=== PATIENT | female | born 1990 | race Caucasian/White ===

== ENCOUNTER → 2022-02-05 02:56 | Outpatient (CLI) | payer OTHER, SELFPAY ==
[2022-02-05 12:18] LABS: Influenza A QL RT-PCR Negative (Negative); Influenza B QL RT-PCR Negative (Negative); SARS-CoV-2 RNA PCR Negative
== END ==
PROVIDERS: PCP Family Medicine; Visit Provider Family Medicine
DX: J06.9 Acute upper respiratory infection, unspecified (principal); Z20.822 Contact with and (suspected) exposure to COVID-19
CPT/HCPCS: 87502; C9803; U0003; U0005

== ENCOUNTER 2022-06-30 12:13 | Outpatient (RCR) | payer OTHER, SELFPAY ==
--- NOTE | ~2022-06-30 | US_ITS ---
EXAMINATION: US OB follow up w BPP DATE: 06/30/2022 13:34 INDICATION: Postdates. Assess amniotic fluid index and estimated weight . TECHNIQUE: Real-time ultrasound of the pelvis was performed. The interpreting radiologist was not pre sent for the study. COMPARISON: None. FINDINGS: There is a single living fetus in vertex presentation. The placenta is posterior. heart rate i s 136 beats per minute (bpm). The amniotic fluid index is 7.1 cm, which is normal (5th%-95%: 8.7-13.7 cm at 40 weeks estimated gestational age) . The following biometric data were obtained: BPD: 9.7 cm -> 39 weeks 6 days Head circumference: 34.1 cm -> 39 weeks 2 days Abdominal circumference: 41.6 cm -> out of range Femur length: 7.9 cm -> 40 weeks 1 days Femur length to abdominal circumference ratio of 18.9 cm below the normal range (20-24). Femur length to head circumference ratio of 23.0 cm normal range (20.7-22.8). Head circumference to abdominal circumference ratio: 0.82 (normal range 0.89-1.04). Estimated weight: 4947 g (+/-) 742 g, 10lbs 15oz (+/-) 1 lbs. 10 oz Biophysical profile performed by the technologist: breathing (30 sec sustained breathing in 30 minutes): 2 out of 2 movement (3 gross body movements in 30 minutes: 2 out of 2 tone (one episode of pdigxlt-pnljqrwnm-jfqoiqv limb movement): 2 out of 2 Amniotic fluid pocket (2 cm): 2 out of 2 Total score: 8 out of 8 IMPRESSION: 1. Single living fetus in vertex presentation. 2. Oligohydramnios with amniotic fluid index of 7.1 cm which is greater than 2 standard deviations b elow the mean. Correlate for leaking fluids. 3. Biophysical profile 8 out of 8. 4. Estimated weight is >97th percentile by Hadlock criteria when 06/29/2022 is used as the estima sheila date of delivery (NEO). Please correlate with clinical information or earlier ultrasounds for mos t accurate NEO. 5. Discordant biometric data with head circumference to abdominal circumference ratio, femur length t o abdominal circumference ratio and femur length to head circumference ratio all outside of the norm al range as detailed above. Reviewed, dictated and finalized at location A. IMPRESSION: 1. Single living fetus in vertex presentation. 2. Oligohydramnios with amniotic fluid index of 7.1 cm which is greater than 2 standard deviations below the mean. Correlate for leaking fluids. 3. Biophysical profile 8 out of 8. 4. Estimated weight is >97th percentile by Hadlock criteria when 06/29/2022 is used as the estimated date of delivery (NEO). Please correlate with clinica l information or earlier ultrasounds for most accurate NEO. 5. Discordant biometric data with head circumference to abdominal circumference ratio, femur length to abdominal circumference ratio and femur length to head circumference ratio all outside of the normal range as detailed above.
--- NOTE | 2022-06-30 13:57 | PC.NURSE ---
1350 Dr Espinoza informed of patient NST, BPP, STONEY, EFW results. Plan to follow up with Dr Espinoza on Tuesday at regularly scheduled appointment. Patient informed of results and will discuss plan of care with Dr Espinoza on Tuesday.
[2022-06-30 14:04] VITALS: BP 117/84; PULSE 90
== END 2022-06-30 14:00 | disposition home or self-care (01) ==
LOC: ANHOBOP 12:13
PROVIDERS: PCP Family Medicine; Visit Provider Obstetrics & Gynecology
DX: O48.0 Post-term pregnancy (principal); O28.3 Abnormal ultrasonic finding on antenatal screening of mother; O41.03X0 Oligohydramnios, third trimester, not applicable or unspecified; Z3A.40 40 weeks gestation of pregnancy
CPT/HCPCS: 59025; 76816; 76819

== ENCOUNTER 2022-07-02 17:16 | Inpatient (IN) | payer OTHER, SELFPAY ==
[2022-07-02] VITALS (50 sets, daily range): BP systolic 91–139; BP diastolic 57–96; PULSE 64–101; RESP 14–18; TEMP 36.4–36.5; O2SAT 93–100; BMI 47.3
[2022-07-02] MEDS: LACTATED RINGERS 1,000 ML 125 ML IV CONT (17:58)
--- NOTE | 2022-07-02 18:01 | WPDANESEPPF ---
Anes - Initial Pre Proc Eval Procedure: Operation Date: 07/02/22 18:30 Proposed Procedures p Section - Brijesh Espinoza MD Date/Time: 07/02/22 18:01 Surgeon: Brijesh Espinoza MD Pre Op Diagnosis: c/s Patient Data Age: 32 Gender: F Height: 1.75 m Weight: 145.5 kg Last Vital Signs Pulse 99 07/02/22 17:46 BP 120/95 H 07/02/22 17:46 Allergies Allergy/AdvReac Type Severity Reaction Status Date / Time Sulfa (Sulfonamide Allergy Unknown Rash Verified 06/02/22 14:36 Antibiotics) Home Medications Medication Instructions Recorded Confirmed Type escitalopram oxalate 10 mg tablet 10 mg PO DAILY #30 tabs 03/02/22 Rx (Lexapro) prenat.vits,john,[id number] 1 tablet PO DAILY 06/02/22 06/02/22 History Laboratory Tests 07/02/22 07/02/22 17:49 17:49 WBC Pending RBC Pending Hgb Pending Hct Pending MCV Pending MCH Pending MCHC Pending RDW Pending Plt Count Pending MPV Pending Immature Gran % (Auto) Pending Neut % (Auto) Pending Lymph % (Auto) Pending [place] % (Auto) Pending Eos % (Auto) Pending Baso % (Auto) Pending Lymph # (Auto) Pending [place] # (Auto) Pending Eos # (Auto) Pending Baso # (Auto) Pending Abs Immat Gran (auto) Pending Absolute Neuts (auto) Pending Absolute Nucleated RBC Pending Nucleated RBC % Pending RPR Pending Patient hx anesthesia problems: none Family hx anesthesia problems: none Results Review: All pre-operative results and documents have been reviewed as part of the pre-operative evaluation. [facility] Past Medical History Medical History Anxiety Family History Family History (Updated 06/02/22 @ 14:39 by Qing Oliveira RN) Father Family history of elevated blood lipids Sibling Family history of type 1 diabetes mellitus Sibling History of anesthesia reaction Grandparent Heart defect, congenital Social History Social History (Updated 08/27/21 @ 09:04 by Bonnie Garnett CMA) Smoking status: Former smoker Tobacco type: e-cigarettes/vaping Second hand tobacco smoke exposure: Yes Alcohol intake: current Alcohol use details: social Substance use: never Substance use type: does not use Additional occupation/education comments: 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 Gender identity (if verbalized by the patient): Female Spiritual care concerns: No Anes - Eval Final PreProcedure Day of Procedure 07/02/22 18:01 Patient weight: morbidly obese Heart: regular rate and rhythm Lungs: clear to auscultation and normal air movement Airway: Mallampati scale class II Neurological: alert and oriented Last oral intake: >/= 8 hours ASA classification: III Emergent: no Anesthetic plan: proceed Anesthesia type and monitoring: regional spinal and standard monitoring Results Review: All pre-operative results and documents have been reviewed as part of the pre-operative evaluation. Informed Consent: The patient's anesthetic plan and its attendant risks and benefits were discussed with the patient/family/POA. Questions were solicited and answers provided to the satisfaction of the patient/family/POA.
[2022-07-02 18:06] LABS: Basophils Percent Auto 0.2 % (0.2-1.2); Eosinophils Absolute Auto 0.1 K/mm3 (0-0.3); Eosinophils Percent Auto 0.8 % (0-4.4); Hematocrit 36.2 % (37.0-47.0); Hemoglobin 12.6 g/dL (12.0-15.0); Immature Granulocyte Absolute 0.07 K/mm3 (0.00-0.031); Immature Granulocyte Percent A 0.7 % (0-0.5); Lymphocytes Absolute Auto 1.97 K/mm3 (0.9-3.2); Lymphocytes Percent Auto 19.3 % (18.3-44.2); Mean Corpuscular HGB Conc 34.8 g/dl (32-36); Mean Corpuscular Hemoglobin 31.8 pg (26-34); Mean Corpuscular Volume 91.4 fl (80-100); Mean Platelet Volume 12.2 fl (7.4-10.4); Monocytes Absolute Auto 0.6 K/mm3 (0.1-0.6); Monocytes Percent Auto 5.5 % (2.6-8.5); Neutrophils Absolute Auto 7.5 K/mm3 (1.3-6.7); Neutrophils Percent Auto 73.5 % (45.5-73.1); Platelet Count Result 175 k/mm3 (150-375); Red Blood Count 3.96 M/mm3 (4.2-5.4); Red Cell Distribution Width 12.8 % (11.5-14.5); White Blood Count 10.2 K/mm3 (4.5-10.0)
--- NOTE | 2022-07-02 18:09 | LDADM ---
This patient, Sondra South, was admitted to Labor/Delivery/Recovery 119 on 07/02/22 at 17:16. Plans for labor, pain management and were discussed with patient. Patient/family oriented to hospital policies and general routines including ID bracelet, bed and alarms, visiting hours, pain management, procedures, bathroom and other care routines, personal items, smoking policy, room service/diet and guest tray routines, infant security routines, and visiting hours. Patient/Family are encouraged to report perceived risks to care and to ask questions if they do not understand what they are told or what they should do. See OBIX for further documentation.
[2022-07-02] MEDS: ceFAZolin 3 GM/D5W 100 ML 100 ML IVPB (18:39)
--- NOTE | 2022-07-02 18:43 | PM.IMHP ---
H&P: HPI History of Present Illness Date/Time: 07/02/22 18:43 Chief Complaint: intrauterine at term spontaneous rupture of membranes suspected macrasomia Narrative: 32 yo G1 at 40w2d who presents with SROM. Pt is unsure when she had rupture. She reports small quantities of fluid since yesterday. She reports good movement. Pt is complicated by glucose intolerance. She had a recent growth scan that estimated the weight to be >5000g. Pt discussed this with Dr. Espinoza and elected for primary . Review of Systems Cardiovascular: Cardiovascular: Denies chest pain, Denies leg edema, Denies palpitations, Denies dyspnea and Denies dyspnea on exertion Respiratory: Respiratory: Denies cough, Denies dyspnea and Denies dyspnea on exertion Gastrointestinal: Gastrointestinal: Denies abdominal pain, Denies constipation, Denies diarrhea, Denies nausea and Denies vomiting Genitourinary: Genitourinary: Denies hematuria, Denies urinary frequency, Denies dysuria, Denies pelvic pain, Denies urinary incontinence and Denies vaginal discharge Neurologic: Reports system reviewed and no additional complaints, except as documented Psychiatric: Psychiatric: Reports no additional psychiatric complaints Endocrine: Endocrine: Denies palpitations PMFSH Past Medical History Medical History Anxiety Family History Family History (Updated 06/02/22 @ 14:39 by Qing Oliveira RN) Father Family history of elevated blood lipids Sibling Family history of type 1 diabetes mellitus Sibling History of anesthesia reaction Grandparent Heart defect, congenital Social History Social History (Updated 08/27/21 @ 09:04 by Bonnie Garnett [facility]) Smoking status: Never smoker Tobacco type: e-cigarettes/vaping Second hand tobacco smoke exposure: Yes Alcohol intake: current Alcohol use details: social Substance use: never Substance use type: does not use Additional occupation/education comments: 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 Gender identity (if verbalized by the patient): Female Spiritual care concerns: No Meds Home Medications and Allergies Home Medications Medication Instructions Recorded Confirmed Type escitalopram oxalate 10 mg tablet 10 mg PO DAILY #30 tabs 03/02/22 07/02/22 Rx (Lexapro) prenat.vits,john,[id number] 1 tablet PO DAILY 06/02/22 06/02/22 History Allergies Allergy/AdvReac Type Severity Reaction Status Date / Time Sulfa (Sulfonamide Allergy Unknown Rash Verified 06/02/22 14:36 Antibiotics) Vital Signs Vital Signs - 24 hr 07/02/22 17:46 07/02/22 18:01 07/02/22 18:16 Temperature Pulse Rate 99 96 84 Blood Pressure 120/95 H 130/96 H 139/88 07/02/22 18:30 07/02/22 18:32 Temperature 36.5 C Pulse Rate 88 Blood Pressure 133/77 Exam Const: General: no acute distress Eyes: EOM: EOMs intact bilaterally Neck: Neck: supple Thyroid: thyroid normal Chest: Breast/axilla inspection: normal inspection of the breasts Breast/axilla palpation: normal palpation of the breasts, normal palpation of the axillae and no axillary lymphadenopathy Resp: Effort & Inspection: normal respiratory effort Auscultation: clear to auscultation bilaterally Cardio: Rate: regular rate Rhythm: regular rhythm GI: Inspection: non-distended and other (Gravid) GI Palp: Yes Soft to palpation, No Tenderness to palpation present (GI) and No Guarding due to palpation present (GI) Auscultation: normal bowel sounds : Speculum Exam - Vagina: No vaginal bleeding OB/external & speculum: external exam normal; No vaginal bleeding Skin: General skin exam: normal color and no rashes or lesions noted Neuro: Cognition (Neuro): normal cognition Speech: normal speech Extrem: General: normal to inspection Psych: Mental Status: mental status grossly normal Affect: normal affect H&P:
--- NOTE | 2022-07-02 19:49 | W.PM.PROC2 ---
Procedure Note - Detailed Date of Procedure 07/02/22 Pre-op Diagnosis intrauterine at term spontaneous rupture of membranes Post-op Diagnosis Same Procedure Performed low transverse section Surgeon Azael Funes MD Anesthesia Spinal and Epidural Indications suspected macrosomia Description of Procedure The patient was taken to the operating room. A combined spinal epidural anesthesic was administered and found to be adequate at a t-10 level. The patient was placed in a supine position with a slight left lateral tilt. A miles catheter was placed with return of clear urine. A Bovie grounding pad was placed. Surgical prep was performed and surgical drapes were placed. A surgical time out was performed. A Pfannenstiel skin incision was then made with the scalpel and carried through to the underlying layer of fascia. The fascia was then incised in the midline and the incision was extended laterally with the Huggins scissors. The superior aspect of the fascia was then grasped with the Keisha clamps, elevated, and the underlying rectus muscles dissected off bluntly and sharply. Attention was then turned to the inferior aspect of this incision which, in a similar fashion, was grasped, tented up with the Keisha clamps, and the rectus muscles dissected off both bluntly and sharply. The rectus muscles were then in the midline. The peritoneum was identified and entered bluntly. The peritoneal incision was then extended superiorly and inferiorly with good visualization of the bladder. The vesico-uterine serosa was identified and dissected to create a bladder flap. The bladder blade was reinserted. The uterus was inspected for rotation. A low-transverse uterine incision was made sharply with the scalpel and entry was made into the uterine cavity. An amniotomy was made and copious amounts of clear fluid were noted on return. The uterine incision was extended laterally bluntly. The bladder blade was removed and the fetus was delivered atraumatically. The nose and mouth were suctioned with a bulb syringe. The umbilical cord was clamped twice and cut. The infant was handed off to the waiting staff. A second segment of umbilical cord was clamped and cut for cord blood gasses. Cord blood was collected for determination of the blood type and for direct Dennis. The placenta was delivered spontaneously without difficulty. The placenta appeared grossly normal and complete. The uterus was exteriorized and cleared of all clots and debris. The uterine incision was repaired using 0-monocryl suture in a running fashion. A second layer of 0 Monocryl suture was used in an imbricating fashion to obtain excellent hemostasis and uterine strength. The uterine closure was inspected for hemostasis. The posterior aspect of the uterus and the broad ligaments were inspected and the posterior cul-de-sac cleared of fluid and blood clots. The uterine closure was again inspected and found to be hemostatic. The uterus was returned to the abdominal cavity. The pericolic gutters were inspected and were cleared of all blood clots and debris. The uterine closure was then re inspected to ensure hemostasis as were all subfascial tissues. The peritoneum was closed using 3-0 vicryl in a running fashion. The fascia was reapproximated with 0-vicryl in a running fashion. The subcutaneous tissue was irrigated and hemostasis achieved with electrocautery. It was reapproximated with 3-0 vicryl in a running fashion. The skin was closed with 4-0 vicryl in a subcuticular fashion. A sterile dressing was applied to the wound. The patient tolerated the procedure well. Sponge, lap and needle counts were correct times three. The patient was taken to recovery in stable condition and without anticipated complications. Estimated Blood Loss 425 Drains No Packing No Complications No immediate complications Condition Stable Disposition Floor
[2022-07-02] MEDS: OXYTOCIN 30 UNITS/NS 500 ML 30 UNITS/500 ML BAG 125 UNITS IV CONT (20:40)
--- NOTE | 2022-07-02 22:23 | PC.NURSE ---
Patient arrived to unit and placed into room 286 via stretcher accompanied by , infant and 2 RNs. Patient and family member oriented to the room and unit. Safety precautions reviewed and verbalized understanding. Call light within reach. No signs of distress. Will continue to monitor.
[2022-07-03] MEDS: DEXTROSE 5%/0.45% SOD CHL 1,000 ML 125 ML IV CONT (01:00)
[2022-07-03] MEDS: ACETAMINOPHEN 325 MG TABLET 650 MG PO (04:13)
--- NOTE | 2022-07-03 07:57 | P.PNOB_ITS ---
OB - PN: Subj Subjective Date/time seen: 07/03/22 07:57 Patient comments: no complaints, pain well controlled, tolerating diet and flatus present OB - PN: Obj Data Labs CBC & Chem 7: 07/02/22 17:49 Labs: Laboratory Results - last 24 hr 07/02/22 07/02/22 17:49 17:49 WBC 10.2 H RBC 3.96 L Hgb 12.6 Hct 36.2 L MCV 91.4 MCH 31.8 MCHC 34.8 RDW 12.8 Plt Count 175 MPV 12.2 H Immature Gran % (Auto) 0.7 H Neut % (Auto) 73.5 H Lymph % (Auto) 19.3 [place] % (Auto) 5.5 Eos % (Auto) 0.8 Baso % (Auto) 0.2 Lymph # (Auto) 1.97 [place] # (Auto) 0.6 Eos # (Auto) 0.1 Baso # (Auto) 0.0 Abs Immat Gran (auto) 0.07 H Absolute Neuts (auto) 7.5 H Absolute Nucleated RBC 0.0 Nucleated RBC % 0.0 Blood Type O Positive Antibody Screen Positive JOSE, Poly Interpret Negative OB - PN A/P Plan day: 1 Plan: routine care Comments: patient doing well H/H pending afebrile, VSS Dressing clean, small amount of dried blood. Will change dressing prior to d/c t omorrow miles removed, voiding spontaneously continue routine post op care Time Spent With Patient Time: Total time spent is greater than 50% in coordination of care (as documented) at patient's floor/unit and/or counseling patient: Time with patient: less than 15 minutes Review of Systems Constitutional: Constitutional: Reports no additional constitutional complaints Cardiovascular: Cardiovascular: Reports no additional cardiovascular c omplaints Respiratory: Respiratory: Reports no additional respiratory complaints Gastrointestinal: Gastrointestinal: Reports no additional gastrointestinal complaints Genitourinary: Genitourinary: Reports no additional female genitourinary complaints Exam Const: General: comfortable and no acute distress Resp: Effort & Inspection: normal respiratory effort Auscultation: clear to auscultation bilaterally Cardio: Rate: regular rate GI: GI Palp: Yes Soft to palpation, Yes Tenderness to palpation present (GI) (around incision ) and No Guarding due to palpation present (GI) Auscultation: normal bowel sounds Other: incision C/D/I, covered with Dermabond Psych: Appearance: grossly normal Mental Status: mental status grossly normal Affect: normal affect
--- NOTE | 2022-07-03 07:58 | PM.OBDSVD ---
DS: Admitting Diagnosis Discharge Date 07/04/22 Admitting Diagnosis Intrauterine at term spontaneous rupture of membranes suspected macrosomia OB - DS: Summary OB Procedures : None OB Procedures Intrapartum: OB Procedures: : None Peripartum Data Delivery Method: Section Procedures: Procedures Operation Date: 07/02/22 18:30 Actual Procedure Side Surgeon p Section Bilateral Azeal Funes MD complications: none Status at Discharge Functional status at discharge: independent ambulation Overall status at discharge: patient is progressing back to baseline Time Spent with Patient Time attestation: Total time spent providing and/or coordinating discharge services: Time spent: Less than 30 minutes Exam Const: General: comfortable and no acute distress Resp: Effort & Inspection: normal respiratory effort Auscultation: clear to auscultation bilaterally Cardio: Rate: regular rate GI: Inspection: non-distended GI Palp: Yes Soft to palpation, No Firmness to palpation present (GI), Yes Tenderness to palpation present (GI) (mild tenderness over incision ) and No Guarding due to palpation present (GI) Auscultation: normal bowel sounds Psych: Appearance: grossly normal Mental Status: mental status grossly normal DS: Data Data Completed and Pending Labs on day of discharge: Labs from last 24 hours 07/02/22 07/02/22 07/02/22 17:49 17:49 17:49 WBC 10.2 H RBC 3.96 L Hgb 12.6 Hct 36.2 L MCV 91.4 MCH 31.8 MCHC 34.8 RDW 12.8 Plt Count 175 MPV 12.2 H Immature Gran % (Auto) 0.7 H Neut % (Auto) 73.5 H Lymph % (Auto) 19.3 [place] % (Auto) 5.5 Eos % (Auto) 0.8 Baso % (Auto) 0.2 Lymph # (Auto) 1.97 [place] # (Auto) 0.6 Eos # (Auto) 0.1 Baso # (Auto) 0.0 Abs Immat Gran (auto) 0.07 H Absolute Neuts (auto) 7.5 H Absolute Nucleated RBC 0.0 Nucleated RBC % 0.0 RPR Pending Blood Type O Positive Antibody Screen Positive Antibody Identification Pending Antigen Identification Pending JOSE, IgG Interpret Pending JOSE, Poly Interpret Negative JOSE, Complement Interp Pending Discharge Plan Discharge Discharging Clinician: Azael Funes Patient Disposition: Home, Self-Care Activity: as tolerated and pelvic rest Diet: regular Wound Care Instructions: keep dressing dry Patient Instructions: Antibiotic Form, (DC) Stand Alone Forms: General Discharge Information Follow-up/Referrals: Brijesh Espinoza MD [Physician] - 4 Weeks Discharge Medications: New hydrocodone-acetaminophen 5-325 mg tablet 1 tablet PO Q6H PRN (Reason: pain) Qty: 30 0RF acetaminophen [Mapap (acetaminophen)] 325 mg Tablet 650 mg PO Q6H PRN (Reason: Mild Pain (1-3)) Qty: 30 0RF ibuprofen 600 mg Tablet 600 mg PO Q6H PRN (Reason: Cramping) Qty: 30 0RF Continued #2 Tablet 1 tablet PO DAILY escitalopram oxalate [Lexapro] 10 mg tablet 10 mg PO DAILY Qty: 30 4RF Date of admission: 07/02/22 17:16 Primary Care Provider: Megan Masters Admitting Provider: Brijesh Espinoza Attending physician on admission: Brijesh Espinoza Condition: Stable
[2022-07-03 09:00] VITALS: PULSE 77; RESP 18; O2SAT 99
--- NOTE | 2022-07-03 09:42 | WPDANLDPN2 ---
Anes-Prog Note L&D Date/Time: 07/03/22 09:42 Comfortable throughout: section Neuraxial method: spinal Epidural/Spinal procedure site: clean & non-tender Neuro status: Neuro function grossly intact. Cardiovascular status: normal Respiratory status: normal Airway patency: baseline Mental status: baseline Post-Op hydration status: normal Vital Signs: Last Vital Signs Temp 36.4 C 07/02/22 19:52 Pulse 68 07/02/22 22:01 Resp 16 07/02/22 21:52 BP 127/67 07/02/22 22:01 Pulse Ox 99 07/02/22 22:03 O2 Del Method Room Air 07/02/22 21:52 Pain score (VAS): 12/07 I/O: Intake & Output 07/02/22 07/03/22 07/03/22 23:59 07:59 15:59 Intake Total 100 375 Output Total 1200 200 Balance -1100 175 Post-procedural complaints: none Patient feedback: Patient satisfied with anesthetic care.
--- NOTE | 2022-07-03 09:43 | WPDANLDNPN2 ---
Anes-Prog Note L&D-Neuraxial Date/Time: 07/03/22 09:43 Neuraxial medications: intrathecal PF morphine Opiod-related complaints: none Patient feedback: Patient satisfied with post-operative pain management.
[2022-07-03] MEDS: IBUPROFEN 600 MG TABLET PO ×2 (09:58→16:16)
[2022-07-03] MEDS: HYDROcodone/acetaminophen (*CRX) 5-325 MG TABLET 1 TAB PO ×3 (09:59→23:05)
[2022-07-03] MEDS: MULTIVIT/MIN/PREN/FOL AC/IRON TABLET 1 TAB PO (09:59)
[2022-07-03] MEDS: SIMETHICONE 80 MG TAB.CHEW PO ×3 (09:59→20:01)
[2022-07-03] MEDS: DOCUSATE SODIUM 100 MG CAPSULE PO ×2 (09:59→16:16)
[2022-07-03] MEDS: POLYSACCHARIDE IRON COMPLEX 150 MG CAPSULE PO ×2 (10:00→16:16)
[2022-07-03 10:30] VITALS: BP 117/88; PULSE 94; RESP 18; TEMP 36.4; O2SAT 98
[2022-07-03 14:00] VITALS: PULSE 77; RESP 18; O2SAT 99
[2022-07-03 15:35] VITALS: BP 129/69; PULSE 77; RESP 18; TEMP 36.1; O2SAT 99
[2022-07-03 20:00] VITALS: BP 140/74; PULSE 90; RESP 18; TEMP 36.8; O2SAT 99
[2022-07-03 20:03] LABS: Basophils Percent Auto 0.2 % (0.2-1.2); Eosinophils Absolute Auto 0.1 K/mm3 (0-0.3); Eosinophils Percent Auto 0.7 % (0-4.4); Hematocrit 30.9 % (37.0-47.0); Hemoglobin 10.6 g/dL (12.0-15.0); Immature Granulocyte Absolute 0.06 K/mm3 (0.00-0.031); Immature Granulocyte Percent A 0.5 % (0-0.5); Lymphocytes Absolute Auto 2.05 K/mm3 (0.9-3.2); Lymphocytes Percent Auto 15.5 % (18.3-44.2); Mean Corpuscular HGB Conc 34.3 g/dl (32-36); Mean Corpuscular Hemoglobin 31.6 pg (26-34); Mean Corpuscular Volume 92.2 fl (80-100); Mean Platelet Volume 12.1 fl (7.4-10.4); Monocytes Absolute Auto 0.7 K/mm3 (0.1-0.6); Monocytes Percent Auto 5.1 % (2.6-8.5); Neutrophils Absolute Auto 10.4 K/mm3 (1.3-6.7); Platelet Count Result 139 k/mm3 (150-375); Red Blood Count 3.35 M/mm3 (4.2-5.4); Red Cell Distribution Width 13.1 % (11.5-14.5); White Blood Count 13.3 K/mm3 (4.5-10.0)
[2022-07-04] MEDS: IBUPROFEN 600 MG TABLET PO ×2 (04:19→09:52)
[2022-07-04] MEDS: SIMETHICONE 80 MG TAB.CHEW PO ×2 (04:19→09:52)
[2022-07-04] MEDS: HYDROcodone/acetaminophen (*CRX) 5-325 MG TABLET 1 TAB PO ×3 (04:21→15:40)
[2022-07-04 07:50] VITALS: BP 134/73; PULSE 90; RESP 18; TEMP 37.1; O2SAT 99
[2022-07-04] MEDS: POLYSACCHARIDE IRON COMPLEX 150 MG CAPSULE PO (09:53)
[2022-07-04] MEDS: MULTIVIT/MIN/PREN/FOL AC/IRON TABLET 1 TAB PO (09:53)
[2022-07-04] MEDS: ESCITALOPRAM OXALATE 10 MG TABLET PO (09:53)
[2022-07-04] MEDS: DOCUSATE SODIUM 100 MG CAPSULE PO (09:53)
[2022-07-04 10:00] VITALS: PULSE 90; RESP 18; O2SAT 99
[2022-07-04] MEDS: TETANUS,DIPHTHERIA,AC PERTUSSIS ADULT (0.5 ML) BOOSTRIX IM (15:33)
[2022-07-05 10:46] VITALS: BP 121/84; PULSE 103; RESP 16; TEMP 36.9
[2022-07-05 14:40] LABS: Rapid Plasma Reagin Reactive (NonReactive)
[2022-07-08 15:44] LABS: Treponema pallidum Ab FTA ABS Nonreactive (Nonreactive)
== END 2022-07-04 16:00 | disposition home or self-care (01) | DRG 788 ==
LOC: ANHOB2 07-04 12:49 → ANHLDR 07-06 07:56
PROVIDERS: Admitting Provider Student in an Organized Health Care Education/Training Program; PCP Family Medicine; Visit Provider Student in an Organized Health Care Education/Training Program
PROC: (CPT 59514; principal; 2022-07-05 10:30)
DX: O42.92 Full-term premature rupture of membranes, unspecified as to length of time between rupture and onset of labor (principal); O99.344 Other mental disorders complicating childbirth; F41.9 Anxiety disorder, unspecified; O69.81X0 Labor and delivery complicated by cord around neck, without compression, not applicable or unspecified; Z3A.40 40 weeks gestation of pregnancy; Z37.0 Single live birth
CPT/HCPCS: 36415; 59025; 76816; 76819; 81479; 84112; 85025; 86592; 86780; 86850; 86860; 86870; 86880; 86900; 86901; 86902; 86922; 86971; 86978; 90715; A9270; J0131; J0690; J2274; J2370; J2405; J2590; J7120

== ENCOUNTER 2024-09-15 13:11 | Outpatient (CLI) | payer OTHER, SELFPAY ==
[2024-09-15 13:35] LABS: Hematocrit 34.2 % (37.0-47.0); Hemoglobin 12.1 g/dL (12.0-15.0); Mean Corpuscular HGB Conc 35.4 g/dl (32-36); Mean Corpuscular Volume 90.5 fl (80-100); Mean Platelet Volume 11.2 fl (7.4-10.4); Platelet Count Result 169 k/mm3 (150-375); Red Blood Count 3.78 M/mm3 (4.2-5.4); Red Cell Distribution Width 13.3 % (11.5-14.5); White Blood Count 11.2 K/mm3 (4.5-10.0)
[2024-09-15 14:28] LABS: HIV 1/2 Ab P24 Ag Result Negative (Negative)
[2024-09-15 20:56] LABS: Rapid Plasma Reagin Non-Reactive (NonReactive)
== END 2024-09-15 13:12 | disposition home or self-care (01) ==
LOC: ANHLAB 13:13
PROVIDERS: PCP Family Medicine; Visit Provider Obstetrics & Gynecology
DX: Z01.818 Encounter for other preprocedural examination (principal)
CPT/HCPCS: 36415; 85027; 86592; 86703; 86850; 86880; 86900; 86901; 86902; G0432

== ENCOUNTER 2024-09-17 10:03 | Inpatient (IN) | payer OTHER, SELFPAY ==
[2024-09-17] VITALS (46 sets, daily range): BP systolic 103–123; BP diastolic 45–86; PULSE 71–115; RESP 14–20; TEMP 36.5–37.4; O2SAT 90–100; BMI 44.6
--- NOTE | 2024-09-17 08:36 | PM.IMHP ---
H&P: HPI History of Present Illness Date/Time: 09/17/24 08:36 Chief Complaint: Here for repeat Narrative: 34 y/o at 39 5/7 weeks with a prior . Takes Lexapro 10 mg daily for depression and anxiety, well-controlled. Rubella nonimmune. Also has false positive RPR. Several tests showed RPR positive at 1:4, with negative antitreponemal antibodies. Review of Systems Review of Systems: All systems reviewed & are unremarkable except as noted in HPI and below PMFSH Past Medical History Medical History (Updated 09/17/24 @ 08:40 by Brijesh Espinoza MD) Anxiety Surgical History Surgical History (Updated 09/17/24 @ 08:40 by Brijesh Espinoza MD) Hx of section Family History Family History Father Family history of elevated blood lipids Rheumatoid arthritis Sibling Family history of type 1 diabetes mellitus Sibling History of anesthesia reaction Grandparent Heart defect, congenital Social History Social History Smoking packs per day: 0.10 Smoking cigarettes per day: 2.0 Years smoked: 4 Smoking pack-years: 0.40 Smoking status: Former smoker Second hand tobacco smoke exposure: No Alcohol intake: current Alcohol use details: social Substance use: never Substance use type: does not use Lack of Transportation: No Lack of Food: Never True Current Housing: I Have Housing Concerned About Future Housing: No Difficulty Paying Gas/Electric Bills: No Difficulty Paying for Meds: No Currently Unemployed: No Education: Bachelor's Degree Difficulty w/ Childcare or Family Care: No Living arrangements: with family Occupation/Education: occupation Additional occupation/education comments: 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 Gender identity (if verbalized by the patient): Female Spiritual care concerns: No Agree to blood products: Yes Meds Home Medications and Allergies Home Medications Medication Instructions Recorded Confirmed Type prenat.vits,john,eqi-cgcb-myojv 1 tablet PO DAILY 06/02/22 08/29/24 History escitalopram oxalate 10 mg tablet 10 mg PO DAILY #30 tabs 09/03/24 Rx (Lexapro) Allergies Allergy/AdvReac Type Severity Reaction Status Date / Time Sulfa (Sulfonamide Allergy Unknown Rash Verified 08/29/24 15:26 Antibiotics) Exam Const: Orientation/consciousness: patient oriented x3 Other: Well-developed, well-nourished female in no acute distress. Neck: Thyroid: thyroid normal Lymphatic: no lymphadenopathy noted (in neck, axilla or inguinal nodes) Resp: Effort & Inspection: normal respiratory effort Auscultation: clear to auscultation bilaterally Cardio: Rate: regular rate Rhythm: regular rhythm Heart sounds: S1 normal heart sound present and S2 normal heart sound present GI: Other: ABD: Soft, nontender, nondistended, gravid. FHR auscultated. No guarding or rebound tenderness. No hepatosplenomegaly. : General: Yes no CVA tenderness Other: Cervix closed, thick. Back/Spine/Pelvis: Back: no CVA tenderness Skin: General skin exam: normal color and no rashes or lesions noted Neuro: General: patient oriented x3 Extrem: Other: Extremities: nontender with no edema Psych: Mental Status: mental status grossly normal Affect: normal affect Assessment and Plan Assessment and plan (1) Term : Code(s): Z34.90 - Encounter for supervision of normal , unspecified, unspecified trimester Status: Acute Assessment and Plan: A: IUP at 39 5/7 weeks with prior , desiring repeat. False positive RPR. P: Offered repeat . She understands risks of surgery to include risks of anesthesia, risks of pain, infection, bleeding, blood products, thromboembolic phenomena and damage to adjacent structures such as bowel, bladd
--- NOTE | 2024-09-17 10:03 | LDADM ---
This patient, Sondra South, was admitted to Labor/Delivery/Recovery 120 on 09/17/24 at 10:03. Plans for labor, pain management and were discussed with patient. Patient/family oriented to hospital policies and general routines including ID bracelet, bed and alarms, visiting hours, pain management, procedures, bathroom and other care routines, personal items, smoking policy, room service/diet and guest tray routines, infant security routines, and visiting hours. Patient/Family are encouraged to report perceived risks to care and to ask questions if they do not understand what they are told or what they should do. See OBIX for further documentation.
[2024-09-17] MEDS: ACETAMINOPHEN 500 MG TABLET 1000 MG PO (10:30)
[2024-09-17] MEDS: LACTATED RINGERS 1,000 ML 125 ML IV CONT (10:51)
--- NOTE | 2024-09-17 11:49 | WPDHPUPDATE1 ---
History and Physical Update Update Date/Time: 09/17/24 11:49 History and Physical has been reviewed, including an updated exam of the patient. There are NO changes in the patient's condition. Risks, benefits, and alternatives have been discussed and questions answered. Patient agrees to proceed with procedure.
--- NOTE | 2024-09-17 11:55 | WPDANESEPPF ---
Anes - Initial Pre Proc Eval Procedure: Operation Date: 09/17/24 12:00 Proposed Procedures p Repeat Section - Brijesh Espinoza MD Date/Time: 09/17/24 11:55 Surgeon: Brijesh Espinoza MD Pre Op Diagnosis: repeat c-sec Pre Admit Patient Data Age: 34 Gender: F Height: 1.75 m Weight: 137 kg Last Vital Signs Temp 99.3 F 09/17/24 11:10 Pulse 108 H 09/17/24 11:12 BP 115/58 L 09/17/24 11:12 O2 Del Method Room Air 09/17/24 10:55 Allergies Allergy/AdvReac Type Severity Reaction Status Date / Time Sulfa (Sulfonamide Allergy Unknown Rash Verified 08/29/24 15:26 Antibiotics) Home Medications Medication Instructions Recorded Confirmed Type prenat.vits,john,qve-vumo-bbhar 1 tablet PO DAILY 06/02/22 08/29/24 History escitalopram oxalate 10 mg tablet 10 mg PO DAILY #30 tabs 09/03/24 09/17/24 Rx (Lexapro) Patient hx anesthesia problems: none Family hx anesthesia problems: none Results Review: All pre-operative results and documents have been reviewed as part of the pre-operative evaluation. [facility] Past Medical History Medical History Anxiety Surgical History Surgical History Hx of section Family History Family History Father Family history of elevated blood lipids Rheumatoid arthritis Sibling Family history of type 1 diabetes mellitus Sibling History of anesthesia reaction Grandparent Heart defect, congenital Social History Social History Smoking packs per day: 0.10 Smoking cigarettes per day: 2.0 Years smoked: 4 Smoking pack-years: 0.40 Smoking status: Never smoker Second hand tobacco smoke exposure: No Alcohol intake: current Alcohol use details: social Substance use: never Substance use type: does not use Do You Feel Safe in your Home?: Yes Lack of Transportation: No Lack of Food: Never True Current Housing: I Have Housing Concerned About Future Housing: No Difficulty Paying Gas/Electric Bills: No Difficulty Paying for Meds: No Currently Unemployed: No Education: Bachelor's Degree Difficulty w/ Childcare or Family Care: No Living arrangements: with family Occupation/Education: occupation Additional occupation/education comments: 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 Gender identity (if verbalized by the patient): Female Spiritual care concerns: No Agree to blood products: Yes Anes - Eval Final PreProcedure Day of Procedure 09/17/24 11:55 Patient weight: morbidly obese Heart: regular rate and rhythm Lungs: clear to auscultation Airway: Mallampati scale class II Neurological: alert and oriented Last oral intake: >/= 8 hours ASA classification: III Emergent: no Anesthetic plan: proceed Anesthesia type and monitoring: regional spinal and standard monitoring Results Review: All pre-operative results and documents have been reviewed as part of the pre-operative evaluation. Prev spinal anesthetic without apparent complication. All options discussed w pt and SO to the best of my ability. Informed Consent: The patient's anesthetic plan and its attendant risks and benefits were discussed with the patient/family/POA. Questions were solicited and answers provided to the satisfaction of the patient/family/POA.
[2024-09-17] MEDS: FAMOTIDINE 20 MG/2 ML VIAL IV PUSH (11:56)
[2024-09-17] MEDS: ONDANSETRON INJ 4 MG/2 ML VIAL IV PUSH (11:56)
[2024-09-17] MEDS: ceFAZolin 3 GM/D5W 100 ML 100 ML IVPB (11:58)
--- NOTE | 2024-09-17 12:55 | W.PM.OBCSD ---
OB - Delivery Note Procedure Delivery date: 09/17/24 Pre-op diagnosis: Previous Delivery Post-op Diagnosis: Same Induction method: None Delivery monitor: External FHT and External Uterine Procedure Performed: Repeat Surgeon: Brijesh Espinoza MD Anesthesia type: Spinal Description of Procedure/Findings: Findings: Normal-appearing uterus, tubes and ovaries. Meconium stained fluid. Techniques: The patient was taken to the operating room where she was prepared and draped in the usual sterile fashion in dorsal supine position with a leftward tilt. She received cefazolin preoperatively. Spinal anesthesia was found to be adequate. A Pfannenstiel skin incision was made along the previous scar line and was carried through to the underlying layer of the fascia. The fascia was incised in the midline and the incision was extended laterally. The fascia was dissected free of the underlying rectus muscles. The rectus muscles were in the midline. The peritoneum was identified, tented up and entered sharply. The peritoneal incision was extended superiorly and inferiorly with good visualization of the bladder. The bladder blade was placed. The vesicouterine peritoneum was identified, tented up and entered sharply. The incision was extended laterally and the bladder flap was developed. The bladder blade was replaced. The uterus was then incised sharply in a transverse fashion along the lower uterine segment. The incision was extended laterally. The infant's head was delivered atraumatically to the sterile field, followed by the body. The nose and mouth were bulb suctioned. After a delay, the cord was clamped and cut. The infant was handed off the field. Cord blood was collected. The placenta was removed manually and was passed off the field. The uterus was exteriorized and cleared of all clots and debris. The uterine incision was reapproximated using 0 Monocryl in a running, locked fashion. Excellent hemostasis resulted as did excellent reapproximation of the normal anatomy. The uterus was returned the abdomen. The pelvis was irrigated copiously with warmed normal saline. Rigorous hemostasis was assured. The fascial layer was reapproximated using 0 Vicryl in a running fashion. The skin was closed with a running, subcuticular stitch of 4 0 Vicryl. Dermaflex was applied externally. Sponge, lap, needle and instrument counts were correct. The patient was taken to the recovery room in stable condition. The infant went to the nursery in stable condition. I was present and scrubbed the entire procedure. Specimen: Yes (cord blood) Estimated Blood Loss: 205 Drains: Yes (miles) Packing: No Pathology: Yes (cord blood) Complications: None Condition: Stable Disposition: PACU Baby Date of : 09/17/24 Time of : 12:30 Gestational Age by Date: 39 gender: Male Weight (pounds): 8 Weight (ounces): 12 presentation: vertex Placenta delivery description: Manual Removal and Normal Configuration Cord Vessel Description: 3 Vessels, Nuchal Cord (x1) and Delayed Cord Clamping score one minute: 8 score five minutes: 9
--- NOTE | 2024-09-17 12:57 | PM.OBDSVD ---
DS: Admitting Diagnosis Discharge Date 09/19/24 Admitting Diagnosis IUP at term Prior DS: Discharge Diagnosis Discharge Diagnosis (1) delivery delivered: Code(s): O82 - Encounter for delivery without indication Status: Acute OB - DS: Summary OB Procedures : None OB Procedures Intrapartum: OB Procedures: : Rubella lg Peripartum Data Procedures: Procedures Operation Date: 09/17/24 12:00 <No data on this case meets the specified criteria> Time Spent with Patient Time attestation: Total time spent providing and/or coordinating discharge services: Discharge Plan Discharge Attending physician on discharge: Brijesh Espinoza Discharging Clinician: Brijesh Espinoza Patient Disposition: Home, Self-Care Activity: may shower, may drive after 2 weeks and pelvic rest Diet: regular Wound Care Instructions: incision open to air Discharge Instructions: Call or return if temperature above 100.4? F, increased abdominal pain, increased vaginal bleeding or any new problems. Stand Alone Forms: General Discharge Information Follow-up/Referrals: Brijesh Espinoza MD [Physician] - 4 Weeks Discharge Medications: New ibuprofen 600 mg tablet 600 mg PO Q6H PRN (Reason: cramps) Qty: 30 0RF hydrocodone-acetaminophen 5-325 mg tablet 1 - 2 tablet PO Q6H PRN (Reason: pain) Qty: 30 0RF Continued prenat.vits,john,qwq-kikq-oatcd Tablet 1 tablet PO DAILY escitalopram oxalate [Lexapro] 10 mg tablet 10 mg PO DAILY Qty: 30 4RF Date of admission: 09/17/24 10:03 Primary Care Provider: Megan Masters Admitting Provider: Brijesh Espinoza Attending physician on admission: Brijesh Espinoza Condition: Stable
[2024-09-17] MEDS: LIDOCAINE 5% PATCH 1 PATCH TRANSDERM (14:00)
[2024-09-17] MEDS: HYDROcodone/acetaminophen (*CRX) 10-325 MG TABLET 1 TAB PO (15:41)
[2024-09-17] MEDS: LORATADINE 10 MG TABLET PO (15:41)
[2024-09-17] MEDS: SIMETHICONE 80 MG TAB.CHEW PO (15:44)
[2024-09-17] MEDS: DOCUSATE SODIUM 100 MG CAPSULE PO (15:44)
[2024-09-17] MEDS: LORATADINE 10 MG TABLET (15:45)
--- NOTE | 2024-09-17 16:59 | OBPPTRN ---
Patient transferred to post room #286 via (stretcher ). Support person present. Oriented to unit, room, information board, rooming in, admission packet and security measures. Patient verbalizes understanding.
[2024-09-17] MEDS: ESCITALOPRAM OXALATE 10 MG TABLET PO (17:39)
[2024-09-17] MEDS: ACETAMINOPHEN 325 MG TABLET 650 MG PO (17:39)
[2024-09-17] MEDS: KETOROLAC 15 MG/ML VIAL (*BKC) IV PUSH (17:41)
[2024-09-17] MEDS: DEXTROSE 5%/0.45% SOD CHL 1,000 ML 125 ML IV CONT (19:19)
[2024-09-18] MEDS: KETOROLAC 15 MG/ML VIAL (*BKC) IV PUSH ×3 (00:10→12:28)
[2024-09-18] MEDS: ACETAMINOPHEN 325 MG TABLET 650 MG PO ×4 (00:11→19:08)
[2024-09-18 00:18] VITALS: BP 126/77; PULSE 88; RESP 16; TEMP 36.8; O2SAT 99
[2024-09-18 04:30] VITALS: BP 124/79; PULSE 95; RESP 16; TEMP 36.7; O2SAT 100
[2024-09-18] MEDS: HYDROcodone/acetaminophen (*CRX) 10-325 MG TABLET 1 TAB PO ×2 (04:37→21:00)
[2024-09-18 05:13] LABS: Basophils Absolute Auto 0.1 K/mm3 (0.0-0.1); Basophils Percent Auto 0.4 % (0.2-1.2); Eosinophils Absolute Auto 0.2 K/mm3 (0-0.3); Eosinophils Percent Auto 1.2 % (0-4.4); Hematocrit 28.8 % (37.0-47.0); Hemoglobin 10.1 g/dL (12.0-15.0); Immature Granulocyte Absolute 0.09 K/mm3 (0.00-0.031); Immature Granulocyte Percent A 0.7 % (0-0.5); Immature Platelet Fraction Pct 8.8 % (0.9-11.2); Lymphocytes Absolute Auto 2.43 K/mm3 (0.9-3.2); Mean Corpuscular HGB Conc 35.1 g/dl (32-36); Mean Corpuscular Hemoglobin 32.9 pg (26-34); Mean Corpuscular Volume 93.8 fl (80-100); Mean Platelet Volume 11.8 fl (7.4-10.4); Monocytes Absolute Auto 0.6 K/mm3 (0.1-0.6); Monocytes Percent Auto 4.8 % (2.6-8.5); Neutrophils Absolute Auto 9.5 K/mm3 (1.3-6.7); Neutrophils Percent Auto 73.9 % (45.5-73.1); Platelet Count Result 129 k/mm3 (150-375); Red Blood Count 3.07 M/mm3 (4.2-5.4); Red Cell Distribution Width 13.7 % (11.5-14.5); White Blood Count 12.8 K/mm3 (4.5-10.0)
[2024-09-18 08:15] VITALS: BP 111/66; PULSE 78; RESP 18; TEMP 36.4; O2SAT 100
--- NOTE | 2024-09-18 08:47 | PM.OBPNVD ---
OB - PN: Subj Subjective Date/time seen: 09/18/24 08:47 Narrative: Pain OK. Tolerating diet. Would like circumcision for son. OB - PN: Obj Data Labs 09/18/24 04:39 Labs: Laboratory Results - last 24 hr 09/18/24 04:39 WBC 12.8 H RBC 3.07 L Hgb 10.1 L Hct 28.8 L MCV 93.8 MCH 32.9 MCHC 35.1 RDW 13.7 Plt Count 129 L MPV 11.8 H Immature Gran % (Auto) 0.7 H Neut % (Auto) 73.9 H Lymph % (Auto) 19.0 [place] % (Auto) 4.8 Eos % (Auto) 1.2 Baso % (Auto) 0.4 Lymph # (Auto) 2.43 [place] # (Auto) 0.6 Eos # (Auto) 0.2 Baso # (Auto) 0.1 Abs Immat Gran (auto) 0.09 H Absolute Neuts (auto) 9.5 H Absolute Nucleated RBC 0.000 Nucleated RBC % 0.0 % Immature Plt Fraction 8.8 OB - PN A/P Plan Comments: A: POD#1, doing well. P: Reviewed circ. Routine care. Exam Narrative: AVSS I/O OK ABD soft, nontender, fundus firm. Incision c/d/i. EXT nontender
[2024-09-18] MEDS: ESCITALOPRAM OXALATE 10 MG TABLET PO (09:18)
[2024-09-18] MEDS: DOCUSATE SODIUM 100 MG CAPSULE PO ×2 (09:18→17:20)
[2024-09-18] MEDS: MULTIVIT/MIN/PREN/FOL AC/IRON TABLET 1 TAB PO (09:18)
[2024-09-18] MEDS: SIMETHICONE 80 MG TAB.CHEW PO ×3 (09:18→17:20)
--- NOTE | 2024-09-18 10:40 | PC.NURSE ---
Introductions were made, then consulted with patient to assess needs related to . Discussed with mother her?plans to feed?her and the?experience so far. She states that infant is latching very well, she has no pain, and there is frequent swallowing. Mom aware that she can call out for a latch check or positioning help if needed. Resources provided for inpatient and outpatient services with the feeding sheet, mom/baby guide and name/number written on the communication board. Mother voiced understanding of information and will call if there is a request for assistance. Reported to the Primary RN.
[2024-09-18 12:42] VITALS: BP 123/75; PULSE 85; RESP 18; TEMP 36.8; O2SAT 100
[2024-09-18] MEDS: LIDOCAINE 5% PATCH 1 PATCH TRANSDERM (17:20)
--- NOTE | 2024-09-18 17:43 | WPDANLDNPN2 ---
Anes-Prog Note L&D-Neuraxial Date/Time: 09/18/24 17:43 Patient feedback: Patient satisfied with post-operative pain management.
--- NOTE | 2024-09-18 17:43 | WPDANLDPN2 ---
Anes-Prog Note L&D Date/Time: 09/18/24 17:43 Neuro status: Neuro function grossly intact. Cardiovascular status: normal Respiratory status: normal Airway patency: baseline Mental status: baseline Post-Op hydration status: normal Vital Signs: Last Vital Signs Temp 36.8 C 09/18/24 12:42 Pulse 85 09/18/24 12:42 Resp 18 09/18/24 12:42 BP 123/75 09/18/24 12:42 Pulse Ox 100 09/18/24 12:42 O2 Del Method Room Air 09/18/24 07:20 Pain score (VAS): 0 I/O: Intake & Output 09/18/24 09/18/24 09/18/24 07:59 15:59 23:59 Intake Total 0 Output Total 600 Balance -600 Post-procedural complaints: none Patient feedback: Patient satisfied with anesthetic care.
[2024-09-18 18:56] VITALS: BP 122/73; PULSE 81; RESP 20; TEMP 36.6; O2SAT 99
[2024-09-18] MEDS: IBUPROFEN 600 MG TABLET PO (19:08)
[2024-09-19] MEDS: ACETAMINOPHEN 325 MG TABLET 650 MG PO ×2 (01:40→09:57)
[2024-09-19] MEDS: IBUPROFEN 600 MG TABLET PO ×2 (01:40→09:57)
[2024-09-19 07:40] VITALS: BP 140/82; PULSE 91; RESP 17; TEMP 36.9; O2SAT 100
--- NOTE | 2024-09-19 08:27 | PC.NURSE ---
On 09/19/24, the student, Asuncion Friedman, provided care and completed [facility] documentation on this patient. I have reviewed the student's documentation and agree with the findings.
--- NOTE | 2024-09-19 08:52 | PM.OBPNVD ---
OB - PN: Subj Subjective Date/time seen: 09/19/24 08:52 Narrative: Pain OK. Tolerating diet. Would like to go home. OB - PN: Obj Data Labs 09/18/24 04:39 OB - PN A/P Plan day: 2 Comments: A: POD#2, doing well. P: Home to f/u 4 weeks. Exam Narrative: AVSS ABD soft, nontender, fundus firm. Incision c/d/i. EXT nontender
--- NOTE | 2024-09-19 09:00 | PC.NURSE ---
Met with patient to assess and discuss needs related to feeding. has a doctor order for supplementation after each due to jaundice and inadequate output. Mother states it is her intention to triple feed for now until her milk is in. She is still putting baby to breast at each feeding. She says the latch isn't as deep since he has been bottle feeding. Encouraged mother to breastfeed 8-12 times in 24 hours (approximately every 2-3 hours), watching for early feeding cues. Encouraged feeding on demand and feeding durations of 15 minutes or greater. Mother instructed to call for assistance if will not feed every 3 hours, if there is discomfort with , or if mother has any other questions or concerns. Suggested mom call at her next for a latch check. resources provided including the Mom and Baby Guide and name/number on communication board. Mother verbalized understanding. Updated patient?s primary RN with education provided.?
[2024-09-19] MEDS: ESCITALOPRAM OXALATE 10 MG TABLET PO (09:17)
[2024-09-19] MEDS: SIMETHICONE 80 MG TAB.CHEW PO ×2 (09:17→11:59)
[2024-09-19] MEDS: MULTIVIT/MIN/PREN/FOL AC/IRON TABLET 1 TAB PO (09:17)
[2024-09-19] MEDS: DOCUSATE SODIUM 100 MG CAPSULE PO (09:17)
--- NOTE | 2024-09-19 13:30 | PC.NURSE ---
Went to patient room to check on how feedings are going. Mom seems anxious and stressed about the spitting up and with the triple feeding process. Primary RN suggested only pumping when doesn't go to breast to reduce the amount of stress on mom. She is feeding frequently and baby takes 2 ounces of formula. Encouraged frequent burping and holding upright to assist with digestion and infant comfort. Mother states that the latch is 'about the same' but she has not called out for a latch check or for any assistance. Advised her again that help is available at every feeding if she needs us and that she can put on her call light at any time. Discussed concerns about mom's anxiety with primary RN.
[2024-09-20 10:40] VITALS: BP 131/65; PULSE 89; RESP 18; TEMP 36.7; O2SAT 100
== END 2024-09-19 15:32 | disposition home or self-care (01) | DRG 788 ==
LOC: ANHLDR 10:40 → ANHOB2 15:29
PROVIDERS: Admitting Provider Obstetrics & Gynecology; PCP Family Medicine; Visit Provider Obstetrics & Gynecology
PROC: 10D00Z1 Extraction of Products of Conception, Low, Open Approach (ICD-10-PCS; CPT 59514; principal; 2024-09-17 12:00)
DX: O34.219 Maternal care for unspecified type scar from previous cesarean delivery (principal); O99.344 Other mental disorders complicating childbirth; O69.81X0 Labor and delivery complicated by cord around neck, without compression, not applicable or unspecified; O77.0 Labor and delivery complicated by meconium in amniotic fluid; Z3A.39 39 weeks gestation of pregnancy; Z37.0 Single live birth; F32.9 Major depressive disorder, single episode, unspecified; F41.9 Anxiety disorder, unspecified; Z87.891 Personal history of nicotine dependence
CPT/HCPCS: 36415; 85025; 85027; 85055; 86592; 86703; 86850; 86870; 86880; 86900; 86901; 86902; 86971; 86978; A9270; G0432; J0690; J1885; J2274; J2371; J2405; J2590; J7120